=== PATIENT | male | born 1980 | race Two or more races ===

== ENCOUNTER 2024-12-20 08:27 | Emergency (ER) | payer SELFPAY ==
[2024-12-20 09:22] LABS: #Basophils 0.3 thou/uL (0.0-0.2); #Eosinophils 0.2 thou/uL (0.0-0.7); #Lymphocytes 2.5 thou/uL (1.20-3.40); #Monocytes 0.6 thou/uL (0.11-0.59); #Neutrophils 6.3 thou/uL (1.40-6.50); %Basophils 2.7 % (0.0-1.0); %Eosinophils 2.2 % (0.0-10.0); %Lymphocytes 25.3 % (21.0-51.0); %Monocytes 6.1 % (0.0-10.0); %Neutrophils 63.8 % (42.0-75.0); Hematocrit 49.7 % (42.0-52.0); Hemoglobin 17.4 g/dL (14.0-18.0); Mean Corpuscular Hemoglobin 31.5 pg (27.0-31.0); Mean Corpuscular Volume 90.1 fl (78.0-98.0); Platelet Count 258 10x3/uL (130-400); Red Blood Cell (RBC) Count 5.52 mill/uL (4.70-6.10); White Blood Cell (WBC) Count 9.9 10x3/uL (4.8-10.8)
[2024-12-20 09:30] LABS: ALT (SGPT) 86 U/L (Less than 45); AST (SGOT) 57 U/L (11-34); Albumin 4.5 g/dL (3.1-4.5); Alkaline Phosphatase 92 U/L (40-110); Anion Gap 17 mmol/L (10-20); BUN (Urea Nitrogen) 13 mg/dL (8.9-20.6); Bilirubin, Total 0.8 mg/dL (0.3-1.2); Calc. Creatinine Clearance 0 mL/min (70-130); Calcium 9.3 mg/dL (7.8-10.44); Carbon Dioxide 25 mmol/L (22-29); Chloride 101 mmol/L (98-107); Globulin 3.7 g/dL (2.4-3.5); Glucose 98 mg/dL (70-105); Lipase 43 U/L (8-78); Potassium 4.0 mmol/L (3.5-5.1); Sodium 139 mmol/L (136-145); Troponin I Less than 0.010 ng/mL (< 0.028)
[2024-12-20] MEDS ORDERED: Acetaminophen 325 MG TAB ONE (09:33)
[2024-12-20] MEDS ORDERED: Aspirin Chewable 81 MG TAB ONE (09:34)
[2024-12-20 12:36] LABS: Troponin I Less than 0.010 ng/mL (< 0.028)
== END 2024-12-20 13:10 | disposition home or self-care (01) ==
LOC: NAV ERS 08:27
DX: R07.89 Other chest pain (principal); M10.9 Gout, unspecified
CPT/HCPCS: 71045; 80053; 83690; 84484; 85025; 93005; 94760